=== PATIENT | male | born 1995 | race Caucasian/White ===

== ENCOUNTER 2021-11-16 17:26 | Emergency (ER) | payer BC, OTHER ==
[2021-11-16] MEDS ORDERED: Bacitracin Oint 1 GM U/D Packet TOP ONE (17:44)
[2021-11-16] MEDS ORDERED: Diphtheria,Pertussis(Acell),Tetanus Vaccine 0.5 ML Syringe IM ONE (17:44)
[2021-11-16] MEDS ORDERED: Lidocaine 1% 10 ML MDV INJECT ONE (17:48)
[2021-11-16] MEDS ORDERED: Lidocaine 1% 10 ML MDV ONE (17:48)
== END 2021-11-16 18:30 | disposition home or self-care (01) ==
LOC: DL.ED 17:26
DX: S61.211A Laceration without foreign body of left index finger without damage to nail, initial encounter (principal); Z23 Encounter for immunization; W23.1XXA Caught, crushed, jammed, or pinched between stationary objects, initial encounter; Y99.0 Civilian activity done for income or pay
CPT/HCPCS: 12001; 90471; 99282-25

== ENCOUNTER 2023-11-01 11:49 | Emergency (ER) | payer OTHER, BC | END 2023-11-01 15:12 | disposition home or self-care (01) | LOC: DL.ED 11:49 | DX: S62.663A Nondisplaced fracture of distal phalanx of left middle finger, initial encounter for closed fracture (principal); W31.1XXA Contact with metalworking machines, initial encounter | CPT/HCPCS: 73130-LT; 99283 ==